=== PATIENT | male | born 1960 | race African-American/Black ===

== ENCOUNTER 2016-10-31 09:51 | Day surgery (SDC) | payer MEDICARE, OTHER ==
[~2016-10-31 09:51] MED LIST: DIPHENHYDRAMINE HCL 50 MG/ML VIAL ONE; EPINEPHRINE INJ 1 MG/10 ML DISP.SYRIN ONE; FLUMAZENIL INJ 0.5 MG/5 ML VIAL IV ONE; GLUCAGON,HUMAN RECOMB 1 MG INJ ONE; MIDAZOLAM 2 MG/2 ML INJ ONE; NALOXONE HCL INJ/PF 0.4 MG/1 ML SDV ONE; ONDANSETRON HCL INJ/PF 4 MG/2 ML SDV ONE; PROMETHAZINE HCL INJ 25 MG/1 ML VIAL ONE
[2016-10-31] MEDS: FENTANYL CITRATE INJ/PF 100 MCG/2 ML AMPUL ONE ×3 (10:42→10:46)
--- NOTE | 2016-10-31 10:54 | Operative Report ---
Operative Report DATE OF SURGERY: 10/31/16 Operative Report: The risks benefits and alternatives of the procedure explained to the patient in detail and informed consent is obtained that GIF Olympus video scope was inserted into the patient's mouth and hypopharynx the esophagus is identified intubated and insufflated the scope was then advanced through the esophagus stomach and duodenum retroflexion maneuver is done the esophagus stomach and first and second portions of the duodenum examined PREOPERATIVE DIAGNOSIS: Epigastric pain POSTOPERATIVE DIAGNOSIS: Gastritis OPERATION: EGD with biopsy SURGEON: CHARLES MARSHALL ANESTHESIA: Moderate Sedation - 2 mg of Versed, 100 g of fentanyl. TISSUE REMOVED OR ALTERED: Gastric specimens obtained rule out Helicobacter pylori COMPLICATIONS: None. ESTIMATED BLOOD LOSS: none. INTRAOPERATIVE FINDINGS: Normal esophagus. Gastritis status post biopsy. First and second portions of the duodenum are normal. PROCEDURE: Patient tolerated the procedure well. No immediate postprocedure complications are noted. Patient is discharged in good condition. Discharge date 10/31/2016. Discharge diet: Regular. Discharge activity: Regular. Patient is instructed to go to emergency room to any further problems or questions. Patient does have a 2-3 week follow-up to discuss findings. We'll await on biopsies.
[2016-10-31 12:05] VITALS: BP 161/87
== END 2016-10-31 12:00 | disposition home or self-care (01) ==
LOC: END 09:51
PROVIDERS: ATTEND Internal Medicine Gastroenterology
PROC: 0DB68ZX Excision of Stomach, Via Natural or Artificial Opening Endoscopic, Diagnostic (ICD-10-PCS; principal; 2016-10-31 10:30)
DX: R10.13 Epigastric pain (principal); E78.1 Pure hyperglyceridemia; K85.80 Other acute pancreatitis without necrosis or infection; E11.9 Type 2 diabetes mellitus without complications; E78.00 Pure hypercholesterolemia, unspecified; Z79.899 Other long term (current) drug therapy; Z79.84 Long term (current) use of oral hypoglycemic drugs; Z79.4 Long term (current) use of insulin
CPT/HCPCS: 43239; 82962; 88305 ×2; J2250; J3010; J0171; J1200; J1610; J2310; J2405; J2550; J3490

== ENCOUNTER 2017-10-17 15:36 | Emergency (ER) | payer MEDICARE, OTHER ==
[2017-10-17] MEDS ORDERED: RINGERS SOLUTION,LACTATED 1,000 ML IV ONE (15:43)
[2017-10-17] MEDS ORDERED: ONDANSETRON HCL INJ/PF 4 MG/2 ML SDV IV ONE ×2 (15:44→19:23)
[2017-10-17] MEDS ORDERED: DIPHENHYDRAMINE HCL 50 MG/ML VIAL IV ONE (15:45)
[2017-10-17] MEDS ORDERED: MORPHINE SULFATE 10 MG/ML INJ IV ONE ×2 (15:45→18:56)
--- NOTE | 2017-10-17 15:48 | ER Document Report ---
ED Medical Screen (RME) - General Chief Complaint: Abdominal Pain Stated Complaint: ABDOMINAL PAIN Time Seen by Provider: 10/17/17 15:42 Notes: Patient is complaining of abdominal pain that started yesterday. 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 Appears to be in severe pain. No diarrhea. No fever. Patient has had his gallbladder removed but no other abdominal surgeries. Patient has a history of pituitary tumor. He is an insulin-dependent diabetic. Hypertension. Diffusely tender abdomen. Appears to be in significant pain. TRAVEL OUTSIDE OF THE [place]. IN LAST 30 DAYS: No - Related Data Allergies/Adverse Reactions: No Known Allergies Allergy (Verified 10/17/17 15:36) Past Medical History - Social History Chew tobacco use (# tins/day): No Frequency of alcohol use: None Drug Abuse: None - Past Medical History Cardiac Medical History: Reports: Hx Coronary Artery Disease, Hx Heart Attack - 2013, Hx Hypercholesterolemia, Hx Hypertension Pulmonary Medical History: Denies: Hx Asthma, Hx Bronchitis, Hx COPD, Hx Pneumonia Neurological Medical History: Denies: Hx Cerebrovascular Accident, Hx Seizures Endocrine Medical History: Reports: Hx Diabetes Mellitus Type 2 Renal/ Medical History: Denies: Hx Peritoneal Dialysis GI Medical History: Reports: Hx Gastroesophageal Reflux Disease Musculoskeltal Medical History: Reports Hx Arthritis - B/L KNEES B/L HANDS Past Surgical History: Reports: Hx Orthopedic Surgery - Immunizations Hx Diphtheria, Pertussis, Tetanus Vaccination: Yes Physical Exam - Vital signs Vitals: Temp Pulse Resp BP Pulse Ox 98.8 F 84 20 150/97 H 97 10/17/17 15:43 10/17/17 15:43 10/17/17 15:43 10/17/17 15:43 10/17/17 15:43 Course - Vital Signs Vital signs: Temp Pulse Resp BP Pulse Ox 98.8 F 84 20 150/97 H 97 10/17/17 15:43 10/17/17 15:43 10/17/17 15:43 10/17/17 15:43 10/17/17 15:43
[2017-10-17 16:22] LABS: HEMATOCRIT 45.3 % (37.9-51.0); MEAN CORPUSCULAR VOLUME 75 fl (80-97); RED BLOOD COUNT 6.04 10^6/uL (4.35-5.55); RED CELL DISTRIBUTION WIDTH 13.6 % (11.5-14.0); WHITE BLOOD COUNT 15.5 10^3/uL (4.0-10.5)
[2017-10-17 16:48] LABS: HEMOGLOBIN 15.2 g/dL (13.5-17.0); HGB HCT DIFFERENCE 0.3
[2017-10-17 16:49] LABS: MEAN CORPUSCULAR HEMOGLOBIN 24.9 pg (27.0-33.4)
[2017-10-17 16:50] LABS: MEAN CORPUSCULAR HGB CONC 33.5 g/dL (32.0-36.0)
[2017-10-17 16:52] LABS: BASOPHILS % (MANUAL) 0 % (0-2); EOSINOPHILS % (MANUAL) 0 % (0-6); LYMPHOCYTES % (MANUAL) 17 % (13-45); TOTAL CELLS COUNTED 100
[2017-10-17 16:54] LABS: HYPOCHROMASIA SLIGHT
--- NOTE | 2017-10-17 18:06 | ER Document Report ---
ED GI/ - General Mode of Arrival: Ambulatory Information source: Patient TRAVEL OUTSIDE OF THE [place] IN LAST 30 DAYS: No <SELAM ADKINS - Last Filed: 10/17/17 18:05> <DOMINIQUE BARTH - Last Filed: 10/18/17 03:49> - General Chief Complaint: Abdominal Pain Stated Complaint: ABDOMINAL PAIN Time Seen by Provider: 10/17/17 15:42 Notes: Patient is a 56-year-old male who presents to the ER today for pancreatitis. Patient has a history of pancreatitis due to high triglycerides multiple times in the past. Patient states that this pain started yesterday while he was in [place] [employer]. He states that it is all in the left upper quadrant of the abdomen and has had nausea and multiple episodes of vomiting. He denies any diarrhea. He states that they took his gallbladder out during 1 of the pancreatitis episodes. He does not drink any alcohol. He is on cholesterol medication. (SELAM ADKINS) - Related Data Allergies/Adverse Reactions: No Known Allergies Allergy (Verified 10/17/17 15:36) Past Medical History - General Information source: Patient - Social History Smoking Status: Never Smoker Chew tobacco use (# tins/day): No Frequency of alcohol use: None Drug Abuse: None Family History: Hypertension Patient has suicidal ideation: No Patient has homicidal ideation: No - Past Medical History Cardiac Medical History: Reports: Hx Coronary Artery Disease, Hx Heart Attack - 2012, Hx Hypercholesterolemia, Hx Hypertension Pulmonary Medical History: Denies: Hx Asthma, Hx Bronchitis, Hx COPD, Hx Pneumonia Neurological Medical History: Denies: Hx Cerebrovascular Accident, Hx Seizures Endocrine Medical History: Reports: Hx Diabetes Mellitus Type 2 Renal/ Medical History: Denies: Hx Peritoneal Dialysis GI Medical History: Reports: Hx Gastroesophageal Reflux Disease Musculoskeltal Medical History: Reports Hx Arthritis - B/L KNEES B/L HANDS Past Surgical History: Reports: Hx Orthopedic Surgery - Immunizations Hx Diphtheria, Pertussis, Tetanus Vaccination: Yes <SELAM ADKINS - Last Filed: 10/17/17 18:05> Review of Systems - Review of Systems Constitutional: No symptoms reported EENT: No symptoms reported Cardiovascular: No symptoms reported Respiratory: No symptoms reported Gastrointestinal: See HPI Genitourinary: No symptoms reported Male Genitourinary: No symptoms reported Musculoskeletal: No symptoms reported Skin: No symptoms reported Hematologic/Lymphatic: No symptoms reported Neurological/Psychological: No symptoms reported <SELAM ADKINS - Last Filed: 10/17/17 18:05> Physical Exam <SELAM ADKINS - Last Filed: 10/17/17 18:05> <DOMINIQUE BARTH - Last Filed: 10/18/17 03:49> - Vital signs Vitals: Temp Pulse Resp BP Pulse Ox 98.8 F 84 20 150/97 H 97 10/17/17 15:43 10/17/17 15:43 10/17/17 15:43 10/17/17 15:43 10/17/17 15:43 - Notes Notes: PHYSICAL EXAMINATION: GENERAL: Uncomfortable appearing, but in no acute distress. HEAD: Atraumatic, normocephalic. EYES: Pupils equal round and reactive to light, extraocular movements intact, sclera anicteric, conjunctiva are normal. NECK: Normal range of motion, supple without lymphadenopathy LUNGS: CTAB and equal. No wheezes rales or rhonchi. HEART: Regular rate and rhythm without murmurs ABDOMEN: Soft, moderate left upper quadrant tenderness. No guarding, no rebound BACK: no vertebral tenderness, normal ROM GI/: no CVA tenderness EXTREMITIES: Normal range of motion, no pitting edema. No cyanosis. NEUROLOGICAL: Cranial nerves grossly intact. Normal sensory/motor exams. PSYCH: Normal mood, normal affect. SKIN: Warm, Dry, normal turgor, no rashes or lesions noted (SELAM ADKINS) Course - Laboratory Result Diagrams: 10/17/17 16:00 10/17/17 16:00 <SELAM ADKINS - Last Filed: 10/17/17 18:05> - Laboratory Result Diagrams: 10/17/17 16:00 10/17/17 19:40 <LANDRYBECKYDOMINIQUE - Last Filed: 10/18/17 03:49> - Re-evaluation Re-evalutation: Patient vomited twice now since I began taking care of him. He is much more comfortable now that he has had Dilaudid. Continuing to give IV fluids, has already received Zosyn. Leukocytosis at 15.5, elevated neutrophils, no bandemia , no fever, tachycardia, or hypotension. LDH is elevated at greater than 3000, lipase is elevated at greater than 17,000. Indirect and direct bilirubin greater than 2. Triglycerides are unmeasurable because of severe elevation. Patient is a very tender upper abdomen. CAT scan will be performed to rule out abscess or other concerning process. CAT scan showing abnormal appearing head which could be necrotizing pancreatitis , developing abscess, or mass. We do not have gastroenterology, limited ability to perform drainage on abscess with interventional radiology, and no ability to perform dialysis in case this is needed for patient's severely elevated triglycerides. Discussed with Dr. Isabel, recommends patient be transferred for these reasons to tertiary care center. Patient requests to go to [place]. 10/17/17 22:45 Called [facility] transfer center, pending call back. 10/17/17 23:[address] Allen, internal medicine, patient will be accepted for transfer. 10/18/17 00:30 We do have an assigned room number. Transport was about 2 hours away. Patient back in pain, requesting more pain medication, heart rate in the 90s, pulse oxygenation 95% on room air. 10/18/17 02:00 Transport team is almost here, patient comfortable, vital signs unchanged, no current complaints. Stable for transport. (DOMINIQUE BARTH) - Vital Signs Vital signs: Temp Pulse Resp BP Pulse Ox 99.2 F 84 19 147/93 H 93 10/18/17 01:56 10/17/17 15:43 10/18/17 02:19 10/18/17 02:19 10/18/17 02:19 - Laboratory Laboratory results interpreted by me: 10/17/17 10/17/17 10/17/17 16:00 19:40 20:00 WBC 15.5 H RBC 6.04 H MCV 75 L MCH 24.9 L Seg Neuts % (Manual) 81 H Monocytes % (Manual) 2 L Abs Neuts (Manual) 12.6 H Sodium 136.8 L Potassium 5.1 H Carbon Dioxide 21 L Glucose 181 H Total Bilirubin 2.8 H Direct Bilirubin 2.5 H AST 79 H ALT < 6 L Lactate Dehydrogenase 3175 H Total Protein 9.0 H Triglycerides > 525 H Cholesterol 272.12 H HDL Cholesterol 22 L Lipase 03044.9 H Urine Protein >=500 H Urine Glucose (UA) 50 H Urine Ketones TRACE H Discharge <SELAM ADKINS - Last Filed: 10/17/17 18:05> <DOMINIQUE BARTH - Last Filed: 10/18/17 03:49> - Discharge Disposition: [facility] Referrals: NICK GUERRERO NP [Primary Care Provider] - Follow up as needed
[2017-10-17] MEDS ORDERED: PIPERACILLIN/TAZOBACTAM 3.375 GM VIAL IV ONE (18:29)
[2017-10-17] MEDS ORDERED: NORMAL SALINE 1000 ML 1,000 ML IV ONE (18:29)
[2017-10-17 20:05] LABS: ALANINE AMINOTRANSFERASE < 6 U/L (21-72); ALBUMIN 4.6 g/dL (3.5-5.0); ALKALINE PHOSPHATASE 43 U/L (38-126); ANION GAP 15 (5-19); BLOOD UREA NITROGEN 14 mg/dL (7-20); CALCIUM 8.6 mg/dL (8.4-10.2); CARBON DIOXIDE 21 mmol/L (22-30); CHLORIDE 101 mmol/L (98-107); CREATININE RESULT 0.77 mg/dL (0.52-1.25); Direct HDL 22 mg/dL (>40); SODIUM 136.8 mmol/L (137-145)
[2017-10-17 20:26] LABS: APPEARANCE,URINE CLEAR; BILIRUBIN,URINE NEGATIVE (NEGATIVE); GLUCOSE, URINE 50 mg/dL (NEGATIVE); KETONES,URINE TRACE mg/dL (NEGATIVE); LEUKOCYTE ESTERASE,URINE NEGATIVE (NEGATIVE); NITRITE,URINE NEGATIVE (NEGATIVE); PROTEIN,URINE >=500 mg/dL (NEGATIVE); UROBILINOGEN,URINE NEGATIVE mg/dL (<2.0)
[2017-10-17 20:38] LABS: ALCOHOL < 10 mg/dL (NONE DETECTED); BILIRUBIN,TOTAL 2.8 mg/dL (0.2-1.3); DIRECT LDL < 30 mg/dL (<100)
[2017-10-17 20:39] LABS: ASPARTATE AMINO TRANSFERASE 79 U/L (17-59); BILIRUBIN,DIRECT 2.5 mg/dL (0.0-0.4); CHOLESTEROL 272.12 mg/dL (0-200)
[2017-10-17 20:40] LABS: GLUCOSE 181 mg/dL (75-110); POTASSIUM 5.1 mmol/L (3.6-5.0)
[2017-10-17 20:59] LABS: LDH 3175 U/L (313-618); LIPASE 17104.9 U/L (23-300)
[2017-10-17] MEDS ORDERED: HYDROMORPHONE HCL INJ/PF 2 MG/ML AMPULE IV ONE (21:20)
[2017-10-17 21:22] LABS: TRIGLYCERIDES > 525 mg/dL (<150)
[2017-10-17 21:26] LABS: VLDL CHOLESTEROL < 600.0 mg/dL (10-31)
--- NOTE | 2017-10-17 22:19 | RADIOLOGY REPORT (SQ) ---
EXAM DESCRIPTION: CT ABD/PELVIS WITH IV ONLY COMPLETED DATE/TIME: 10/17/2017 10:06 pm REASON FOR STUDY: abd pain, vomiting, ? abscess of pancreas COMPARISON: 10/20/2016 TECHNIQUE: CT scan of the abdomen and pelvis performed using helical scanning technique with dynamic intravenous contrast injection. No oral contrast. Images reviewed with lung, soft tissue, and bone windows. Reconstructed coronal and sagittal MPR images reviewed. Delayed images for evaluation of the urinary system also acquired. All images stored on PACS. All CT scanners at this facility use dose modulation, iterative reconstruction, and/or weight based d osing when appropriate to reduce radiation dose to as low as reasonably achievable (ALARA). [facility]: Dose Right [facility]: CareDose [facility]: Dose Right [facility]: Teradose 4D [facility]: [facility] CONTRAST TYPE AND DOSE: contrast/concentration: Isovue 370.00 mg/ml; Total Contrast Delivered: 100.0 ml; Total Saline Delivered: 72.0 ml RENAL FUNCTION: BUN 14 creatinine 0.8 RADIATION DOSE: CT Rad equipment meets quality standard of care and radiation dose reduction techniq ues were employed. CTDIvol: 20.8 - 21.1 mGy. DLP: 2400 mGy-cm.. LIMITATIONS: None. FINDINGS: LOWER CHEST: No significant findings. No nodules or infiltrates. LIVER: Normal size. No masses. No dilated ducts. SPLEEN: Normal size. No focal lesions. PANCREAS: Inflammation surrounding enlarged pancreatic head. There is approximately 1 cm focus of lo w attenuation in the posterior pancreatic head. No evidence of pseudoaneurysm. GALLBLADDER: Surgically absent. ADRENAL GLANDS: No significant masses or asymmetry. RIGHT KIDNEY AND URETER: No solid masses. No significant calcifications. No hydronephrosis or hyd roureter. LEFT KIDNEY AND URETER: No solid masses. No significant calcifications. No hydronephrosis or hydr oureter. AORTA AND VESSELS: No aneurysm. No dissection. Renal arteries, SMA, celiac without stenosis. RETROPERITONEUM: No retroperitoneal adenopathy, hemorrhage or masses. BOWEL AND PERITONEAL CAVITY: No masses or inflammatory changes. No free fluid or peritoneal masses. APPENDIX: Normal. PELVIS: No mass. No free fluid. Normal bladder. ABDOMINAL WALL: No masses. No hernias. BONES: No significant or acute findings. OTHER: No other significant finding. IMPRESSION: Acute pancreatitis. Low-attenuation in the head could represent necrosis/ developing ab scess or underlying mass. TECHNICAL DOCUMENTATION: JOB ID: [id number] Quality ID # [id number]: Final reports with documentation of one or more dose reduction techniques (e.g., Au tomated exposure control, adjustment of the mA and/or kV according to patient size, use of iterative reconstruction technique) 2010 [employer]- All Rights Reserved
[2017-10-17] MEDS ORDERED: NORMAL SALINE 1000 ML 1,000 ML IV PRN (22:55)
[2017-10-17] MEDS ORDERED: PIPERACILLIN/TAZOBACTAM 4.5 GM VIAL IV SCH (23:00)
[2017-10-18] MEDS ORDERED: HYDROMORPHONE HCL 2 MG TABLET PO ONE (00:35)
[2017-10-18] MEDS ORDERED: HYDROMORPHONE HCL INJ/PF 2 MG/ML AMPULE ONE (00:50)
[2017-10-18] MEDS ORDERED: HYDROMORPHONE HCL INJ/PF 2 MG/ML AMPULE IV ONE (00:58)
[2017-10-18 02:04] VITALS: BP 147/93
== END 2017-10-18 02:20 | disposition short-term general hospital (02) ==
LOC: ER 15:36
DX: R10.9 Unspecified abdominal pain (principal); R10.12 Left upper quadrant pain; R11.2 Nausea with vomiting, unspecified
CPT/HCPCS: 96376; 99285; 96361; 96375; 96365; 96367; 36415; 80307; 83615; 83690; 85025; 80053; 81001; 80061; 74177; J1200; J2270; J1170 ×2; J2405; J7030 ×2; J7120; J2543

== ENCOUNTER 2018-11-05 00:57 | Emergency (ER) | payer MEDICARE, OTHER ==
--- NOTE | 2018-11-05 01:48 | ER Document Report ---
HPI - HPI Patient complains to provider of: left hand pain Time Seen by Provider: 11/05/18 01:17 Pain Level: 4 Context: Patient is a 57-year-old male that comes to the emergency apartment for chief complaint of left hand/wrist pain. He states there was a circular swelling area over the area but this seems to have resolved, however the hand is still swollen and painful, especially with movement of the fingers or movement of the wrist. He denies fever chills, injury, history of the same. Symptoms been present for almost 5 days. He was seen by primary care, had an x-ray performed, did not hear the results of the x-ray, symptoms have not resolved. He is taking tramadol by prescription after being seen. Denies orthopedic surgery on the same side, hx septic joints, history of IV drug abuse. Past Medical History - General Information source: Patient - Social History Smoking Status: Never Smoker Frequency of alcohol use: None Drug Abuse: None Lives with: Family Family History: Hypertension - Past Medical History Cardiac Medical History: Reports: Hx Coronary Artery Disease, Hx Heart Attack - 2012, Hx Hypercholesterolemia, Hx Hypertension Pulmonary Medical History: Denies: Hx Asthma, Hx Bronchitis, Hx COPD, Hx Pneumonia Neurological Medical History: Denies: Hx Cerebrovascular Accident, Hx Seizures Endocrine Medical History: Reports: Hx Diabetes Mellitus Type 2 Renal/ Medical History: Denies: Hx Peritoneal Dialysis GI Medical History: Reports: Hx Gastroesophageal Reflux Disease Musculoskeletal Medical History: Reports Hx Arthritis - B/L KNEES B/L HANDS Past Surgical History: Reports: Hx Orthopedic Surgery - Immunizations Hx Diphtheria, Pertussis, Tetanus Vaccination: Yes Vertical Provider Document - CONSTITUTIONAL General Appearance: WD/WN, No Apparent Distress - INFECTION CONTROL TRAVEL OUTSIDE OF THE [place] IN LAST 30 DAYS: No - HEENT HEENT: Atraumatic, Normocephalic - NECK Neck: Normal Inspection - RESPIRATORY Respiratory: Breath Sounds Normal, No Respiratory Distress - CARDIOVASCULAR Cardiovascular: Regular Rate, Regular Rhythm - GI/ABDOMEN Gastrointestinal: Abdomen Soft, Abdomen Non-Tender - BACK Back: Normal Inspection - MUSCULOSKELETAL/EXTREMETIES Musculoskeletal/Extremeties: Tender - Tender over the dorsal aspect of the right hand at the base of the third MCP, there is soft tissue swelling surrounding this. No snuffbox tenderness. Normal range of motion of the wrist, normal range of motion of the fingers although this is somewhat painful. Normal distal neurovascular exam. No erythema or abnormal heat to the area. Normal hand, wrist, arm, shoulder exam otherwise. Course - Re-evaluation Re-evalutation: Patient with soft tissue swelling, point tenderness over the left hand over the dorsal aspect, however there is no abnormal heat, erythema, wound, or signs of infection. Range of motion of the wrist and fingers completely intact although patient has pain with doing so. Normal distal neurovascular exam. X-ray showing bony development over the same place for patient has pain, either old injury or spurring. Patient placed in a wrist immobilization, because of his significant cardiovascular history including CAD, diabetes, hypertension we will avoid anti-inflammatories at this time. Discussed management, orthopedic follow-up, return precautions. Patient states understanding and agreement. - Vital Signs Vital signs: Temp Pulse Resp BP Pulse Ox 98.0 F 71 16 144/90 H 96 11/05/18 01:01 11/05/18 01:01 11/05/18 01:01 11/05/18 01:01 11/05/18 01:01 - Diagnostic Test Radiology reviewed: Image reviewed, Reports reviewed Procedures - Immobilization left wrist Pre-Proc Neuro Vasc Exam: Normal Immobilizer type: Cock-up Performed by: PCT Post-Proc Neuro Vasc Exam: Normal Alignment checked and good: Yes Discharge - Discharge Clinical Impression: Left hand pain Condition: Stable Disposition: HOME, SELF-CARE Additional Instructions: There is a bony abnormality or spur in your hand that is most likely causing secondary inflammation and swelling. Wear the splint, ice the area 3-4 times a day, take Tylenol or your tramadol for pain. Take provided medication tonight at night only if needed for sleep, do not mix with alcohol or some other sedating medication. Do not drive while taking. Follow-up with the orthopedic referral for additional evaluation and management. Return if you worsen including severe swelling, developing redness, fever, numbness, or any other concerning or worsening symptoms. Referrals: KASSI LEDESMA DO [ACTIVE STAFF] - Follow up as needed
--- NOTE | 2018-11-05 02:22 | RADIOLOGY REPORT (SQ) ---
EXAM DESCRIPTION: XR HAND 3 OR MORE VIEWS COMPLETED DATE/TME: 11/05/2018 01:37 CLINICAL HISTORY: 57 years, Male, hand and wrist swelling/pain COMPARISON: None. NUMBER OF VIEWS: 3 TECHNIQUE: 3 view left hand LIMITATIONS: None. FINDINGS: Dorsal soft tissue swelling of the hand. Well-corticated ossific density seen on the lateral view only along the dorsal aspect of the hand which could reflect bony spur or sequelae of old trauma. No evidence for acute fracture or dislocation. Joint spaces are preserved IMPRESSION: Dorsal soft tissue swelling. Well-corticated ossific density along the dorsal aspect of the hand, seen on the lateral view. This could reflect bony spur or sequelae of old trauma copyright 2010 [employer]- All Rights Reserved
--- NOTE | 2018-11-05 02:23 | RADIOLOGY REPORT (SQ) ---
EXAM DESCRIPTION: XR WRIST 3 OR MORE VIEWS COMPLETED DATE/TME: 11/05/2018 01:37 CLINICAL HISTORY: 57 years, Male, hand and wrist swelling/pain COMPARISON: None. NUMBER OF VIEWS: 3 TECHNIQUE: 3 view left wrist LIMITATIONS: None. FINDINGS: Negative for acute fracture or dislocation. Dorsal soft tissue swelling of the hand with well-corticated ossific density, please refer to dedicated hand x-ray. Soft tissues of the wrist are preserved. IMPRESSION: Unremarkable left wrist copyright 2010 [employer]- All Rights Reserved
[2018-11-05] MEDS ORDERED: HYDROCODONE/ACETAMINOPHEN 5-325 MG (6 TAB/ER DISP) PO PRN (02:38)
[2018-11-05 02:53] VITALS: BP 123/94
== END 2018-11-05 02:53 | disposition home or self-care (01) ==
LOC: ER 00:57
DX: M79.642 Pain in left hand (principal); I25.10 Atherosclerotic heart disease of native coronary artery without angina pectoris; E78.00 Pure hypercholesterolemia, unspecified; I10 Essential (primary) hypertension; E11.9 Type 2 diabetes mellitus without complications; I25.2 Old myocardial infarction
CPT/HCPCS: 99283; 73130; 73110; L3908; A9270

== ENCOUNTER 2019-03-08 08:09 | Emergency (ER) | payer MEDICARE, OTHER ==
[2019-03-08] MEDS ORDERED: ACETAMINOPHEN 325 MG TABLET PO ONE (09:39)
[2019-03-08] MEDS ORDERED: KETOROLAC TROMETHAMINE 60 MG/2 ML SDV IM ONE (09:39)
[2019-03-08] MEDS ORDERED: DEXAMETHASONE SOD PHOS INJ 10 MG/1 ML VIAL IM ONE (09:39)
--- NOTE | 2019-03-08 09:41 | ER Document Report ---
HPI - HPI Time Seen by Provider: 03/08/19 09:13 Pain Level: 5 Context: Patient is a 58-year-old male who presents the emergency department with a chief complaint of lower back pain. He describes his pain as a pain that shoots down his left leg. He has had this problem over a month ago. He denies any dysuria, hematuria, IV drug abuse, history of cancer, bladder or bowel dysfunction, or any other symptoms at this time. He has been taking ibuprofen, Goody's powder, and Aleve to help with his symptoms, but has had little relief. He has an appointment with his primary care provider on the of this month. He denies any fever. - CONSTITUTIONAL Constitutional: DENIES: Fever, Chills - EENT EENT: DENIES: Sore Throat, Ear Pain - NEURO Neurology: DENIES: Headache - CARDIOVASCULAR Cardiovascular: DENIES: Chest pain - RESPIRATORY Respiratory: DENIES: Trouble Breathing, Coughing - GASTROINTESTINAL Gastrointestinal: DENIES: Abdominal Pain - MUSCULOSKELETAL Musculoskeletal: REPORTS: Extremity pain - Left buttock, Back Pain - Bilateral. DENIES: Neck Pain, Swelling - DERM Skin Color: Normal Skin Problems: None Past Medical History - General Information source: Patient - Social History Smoking Status: Unknown if Ever Smoked Family History: Hypertension - Past Medical History Cardiac Medical History: Reports: Hx Coronary Artery Disease, Hx Heart Attack - 2013, Hx Hypercholesterolemia, Hx Hypertension Pulmonary Medical History: Denies: Hx Asthma, Hx Bronchitis, Hx COPD, Hx Pneumonia Neurological Medical History: Denies: Hx Cerebrovascular Accident, Hx Seizures Endocrine Medical History: Reports: Hx Diabetes Mellitus Type 2 Renal/ Medical History: Denies: Hx Peritoneal Dialysis GI Medical History: Reports: Hx Gastroesophageal Reflux Disease Musculoskeletal Medical History: Reports Hx Arthritis - B/L KNEES B/L HANDS Past Surgical History: Reports: Hx Cholecystectomy, Hx Orthopedic Surgery - Immunizations Hx Diphtheria, Pertussis, Tetanus Vaccination: Yes Vertical Provider Document - CONSTITUTIONAL Agree With Documented VS: Yes Exam Limitations: No Limitations General Appearance: No Apparent Distress - INFECTION CONTROL TRAVEL OUTSIDE OF THE [place].S. IN LAST 30 DAYS: No - HEENT HEENT: Atraumatic, Normocephalic, PERRLA - NECK Neck: Normal Inspection, Supple - RESPIRATORY Respiratory: Breath Sounds Normal, No Respiratory Distress - CARDIOVASCULAR Cardiovascular: Regular Rate, Regular Rhythm Pulses: Normal: Radial - MUSCULOSKELETAL/EXTREMETIES Musculoskeletal/Extremeties: FROM, Tender - Low back, left buttock - NEURO Level of Consciousness: Awake, Alert, Appropriate Motor/Sensory: No Motor Deficit, No Sensory Deficit Deep Tendon Reflexes: 2+ - DERM Integumentary: Warm, Dry Course - Re-evaluation Re-evalutation: 03/08/19 09:41 Differential diagnosis for back pain includes muscle spasm, muscle strain, slipped disc cauda equina syndrome, vertebral fracture, vertebral tumor, epidural abscess, pyelonephritis, or AAA. Based on history and exam, the most likely etiology of the patient's back pain is sciatic nerve pain on the left side. Emergent MRI is not indicated at this time because the patient does not have new weakness, or cauda equina syndrome. Patient does not have bladder or bowel dysfunction. Patient does not have history of IV drug use, therefore, I do not suspect an epidural abscess. Patient does not have recent weight loss or night sweats, and does not have a known history of cancer. He will receive Toradol, Decadron, and Tylenol here in the emergency department. I will also send him home with Toradol to go home with. He is in agreement with this plan. He will follow-up with his primary care provider. Verbal discharge instructions were given to the patient. They verbalized understanding. They are stable for discharge. - Vital Signs Vital signs: Temp Pulse Resp BP Pulse Ox 98.0 F 79 17 141/86 H 98 03/08/19 08:30 03/08/19 08:30 03/08/19 08:30 03/08/19 08:30 03/08/19 08:30 Discharge - Discharge Clinical Impression: Sciatica Qualifiers: Laterality: left Qualified Code(s): M54.32 - Sciatica, left side Condition: Stable Disposition: HOME, SELF-CARE Instructions: Low Back Pain ([facility]), Warm Packs ([facility]) Additional Instructions: You were seen today in the emergency department for back pain. Your back pain is most consistent with sciatic nerve pain. You may take Toradol and acetaminophen 1000 mg every 6 hours as needed for the pain. You may also buy [id number] Aspercreme with lidocaine and apply to the area per box instructions. If you develop a fever greater than 100.4 F, lose bowel or bladder function, are unable to walk, or have any symptoms that are worrisome to you, please return to the emergency department.. Prescriptions: Acetaminophen [Acetaminophen Extra Strength] 1,000 mg PO Q6HP PRN #90 tablet PRN Reason: Ketorolac Tromethamine [Toradol 10 mg Tablet] 10 mg PO Q6HP PRN #20 tablet PRN Reason: Referrals: NICK GUERRERO, VICE PRESIDENT OF COMPLIANCE [Primary Care Provider] - Follow up as needed
[2019-03-08 10:26] VITALS: BP 144/98
== END 2019-03-08 10:30 | disposition home or self-care (01) ==
LOC: ER 08:09
DX: M54.32 Sciatica, left side (principal); M54.5 Low back pain; I25.10 Atherosclerotic heart disease of native coronary artery without angina pectoris; E78.00 Pure hypercholesterolemia, unspecified; I10 Essential (primary) hypertension; E11.9 Type 2 diabetes mellitus without complications; I25.2 Old myocardial infarction; Z90.49 Acquired absence of other specified parts of digestive tract
CPT/HCPCS: 99283; 96372; A9270; J1885; J1100

== ENCOUNTER 2019-03-13 17:27 | Emergency (ER) | payer MEDICARE, OTHER ==
[2019-03-13 17:35] VITALS: BP 151/97
[2019-03-13] MEDS ORDERED: FENTANYL CITRATE INJ/PF 100 MCG/2 ML AMPUL IV ONE (19:02)
--- NOTE | 2019-03-13 19:04 | ER Document Report ---
ED Medical Screen (RME) - General Chief Complaint: Abdominal Pain Stated Complaint: BACK PAIN Time Seen by Provider: 03/13/19 18:46 Primary Care Provider: NICK GUERRERO NP [Primary Care Provider] - Follow up as needed Mode of Arrival: Ambulatory Information source: Patient Notes: Patient presents complaining of lower back pain for the past month that worsened today. Patient states that he started having abdominal pain as well and is uncertain if his pancreatitis may be flaring up. Patient denies any fever nausea or vomiting at this time. Patient denies any urinary symptoms at this time. I have greeted and performed a rapid initial assessment of this patient. A comprehensive ED assessment and evaluation of the patient, analysis of test results and completion of the medical decision making process will be conducted by additional ED providers. TRAVEL OUTSIDE OF THE [place] IN LAST 30 DAYS: No - Related Data Allergies/Adverse Reactions: No Known Allergies Allergy (Verified 03/13/19 17:29) Past Medical History - Past Medical History Cardiac Medical History: Reports: Hx Coronary Artery Disease, Hx Heart Attack - 2012, Hx Hypercholesterolemia, Hx Hypertension Pulmonary Medical History: Denies: Hx Asthma, Hx Bronchitis, Hx COPD, Hx Pneumonia Neurological Medical History: Denies: Hx Cerebrovascular Accident, Hx Seizures Endocrine Medical History: Reports: Hx Diabetes Mellitus Type 2 Renal/ Medical History: Denies: Hx Peritoneal Dialysis GI Medical History: Reports: Hx Gastroesophageal Reflux Disease Musculoskeltal Medical History: Reports Hx Arthritis - B/L KNEES B/L HANDS Past Surgical History: Reports: Hx Cholecystectomy, Hx Orthopedic Surgery - Immunizations Hx Diphtheria, Pertussis, Tetanus Vaccination: Yes Physical Exam - Vital signs Vitals: Temp Pulse Resp BP Pulse Ox 98.2 F 98 20 151/97 H 96 03/13/19 17:33 03/13/19 17:33 03/13/19 17:33 03/13/19 17:33 03/13/19 17:33 - General General appearance: Alert In distress: Mild Notes: Left flank pain, thoracolumbar midline tenderness, generalized abdominal tenderness Course - Vital Signs Vital signs: Temp Pulse Resp BP Pulse Ox 98.2 F 98 20 151/97 H 96 03/13/19 17:33 03/13/19 17:33 03/13/19 17:33 03/13/19 17:33 03/13/19 17:33 Doctor's Discharge - Discharge Referrals: NICK GUERRERO, [employer] [Primary Care Provider] - Follow up as needed
[2019-03-13 19:39] LABS: APPEARANCE,URINE CLEAR; BILIRUBIN,URINE NEGATIVE (NEGATIVE); COLOR,URINE YELLOW; GLUCOSE, URINE >=500 mg/dL (NEGATIVE); KETONES,URINE TRACE mg/dL (NEGATIVE); LEUKOCYTE ESTERASE,URINE NEGATIVE (NEGATIVE); NITRITE,URINE NEGATIVE (NEGATIVE); PROTEIN,URINE 100 mg/dL (NEGATIVE); URINE SPECIFIC GRAVITY 1.032; UROBILINOGEN,URINE NEGATIVE mg/dL (<2.0)
[2019-03-13 20:02] LABS: ABSOLUTE BASOPHILS # (AUTO) 0.1 10^3/uL (0.0-0.2); ABSOLUTE EOSINOPHILS # (AUTO) 0.2 10^3/uL (0.0-0.6); ABSOLUTE LYMPHOCYTES (AUTO) 4.2 10^3/uL (0.5-4.7); ABSOLUTE MONOCYTES (AUTO) 0.7 10^3/uL (0.1-1.4); ABSOLUTE NEUT (AUTO) 4.7 10^3/uL (1.7-8.2); BASOPHILS % (AUTO) 1.1 % (0-2); EOSINOPHILS % (AUTO) 1.5 % (0-6); HEMATOCRIT 40.8 % (37.9-51.0); LYMPHOCYTES % (AUTO) 42.4 % (13-45); MEAN CORPUSCULAR VOLUME 75 fl (80-97); MONOCYTES % (AUTO) 7.2 % (3-13); PLATELET COUNT 406 10^3/uL (150-450); RED BLOOD COUNT 5.42 10^6/uL (4.35-5.55); RED CELL DISTRIBUTION WIDTH 13.3 % (11.5-14.0); SEGMENTED NEUTROPHILS % (AUTO) 47.8 % (42-78); TOTAL CELLS COUNTED % (AUTO) 100 %; WHITE BLOOD COUNT 9.8 10^3/uL (4.0-10.5)
[2019-03-13 20:12] LABS: ALANINE AMINOTRANSFERASE 47 U/L (21-72); ALBUMIN 4.2 g/dL (3.5-5.0); ALKALINE PHOSPHATASE 55 U/L (38-126); ANION GAP 14 (5-19); ASPARTATE AMINO TRANSFERASE 36 U/L (17-59); BILIRUBIN,DIRECT 0.4 mg/dL (0.0-0.4); BILIRUBIN,TOTAL 0.6 mg/dL (0.2-1.3); BLOOD UREA NITROGEN 25 mg/dL (7-20); CALCIUM 9.5 mg/dL (8.4-10.2); CARBON DIOXIDE 22 mmol/L (22-30); CHLORIDE 100 mmol/L (98-107); GLUCOSE 345 mg/dL (75-110); LIPASE 297.9 U/L (23-300); POTASSIUM 4.4 mmol/L (3.6-5.0); SODIUM 135.8 mmol/L (137-145); TOTAL PROTEIN 7.6 g/dL (6.3-8.2)
[2019-03-13 20:24] LABS: HEMOGLOBIN 13.7 g/dL (13.5-17.0); MEAN CORPUSCULAR HEMOGLOBIN 25.3 pg (27.0-33.4); MEAN CORPUSCULAR HGB CONC 33.6 g/dL (32.0-36.0)
[2019-03-13] MEDS ORDERED: MORPHINE SULFATE 10 MG/ML INJ IM ONE (20:56)
[2019-03-13] MEDS ORDERED: NORMAL SALINE 1000 ML 1,000 ML IV ONE (20:57)
--- NOTE | 2019-03-13 20:59 | ER Document Report ---
ED General - General Chief Complaint: Abdominal Pain Stated Complaint: BACK PAIN Time Seen by Provider: 03/13/19 18:46 Primary Care Provider: NICK GUERRERO NP [Primary Care Provider] - Follow up in 3-5 days Mode of Arrival: Ambulatory Notes: Patient is a 58-year-old male who presents emergency department with a chief complaint of back, flank, and abdominal pain. He states that he has been having his symptoms for the past week. He was seen in the emergency department 4 days ago and was treated with Toradol and Decadron and he had some relief relief, but today he feels like his symptoms got worse. He has a past medical history of hypertension and diabetes. He is currently on atenolol, aspirin, metformin, and Lantus. Denies any dysuria, penile discharge, fever, or any other symptoms. TRAVEL OUTSIDE OF THE [place] IN LAST 30 DAYS: No - Related Data Allergies/Adverse Reactions: No Known Allergies Allergy (Verified 03/13/19 17:29) Past Medical History - General Information source: Patient - Social History Smoking Status: Never Smoker Chew tobacco use (# tins/day): No Frequency of alcohol use: None Drug Abuse: None Family History: Hypertension Patient has suicidal ideation: No Patient has homicidal ideation: No - Past Medical History Cardiac Medical History: Reports: Hx Coronary Artery Disease, Hx Heart Attack - 2012, Hx Hypercholesterolemia, Hx Hypertension Pulmonary Medical History: Denies: Hx Asthma, Hx Bronchitis, Hx COPD, Hx Pneumonia Neurological Medical History: Denies: Hx Cerebrovascular Accident, Hx Seizures Endocrine Medical History: Reports: Hx Diabetes Mellitus Type 2 Renal/ Medical History: Denies: Hx Peritoneal Dialysis GI Medical History: Reports: Hx Gastroesophageal Reflux Disease Musculoskeletal Medical History: Reports Hx Arthritis - B/L KNEES B/L HANDS Past Surgical History: Reports: Hx Cholecystectomy, Hx Orthopedic Surgery - Immunizations Hx Diphtheria, Pertussis, Tetanus Vaccination: Yes Review of Systems - Review of Systems Notes: REVIEW OF SYSTEMS: CONSTITUTIONAL : Denies recent illness. Denies recent unintentional weight loss. Denies fever, chills, or sweats. EENT: Denies eye, ear, throat, or mouth pain, discharge, or symptoms. Denies nasal or sinus congestion. CARDIOVASCULAR: Denies chest pain. RESPIRATORY: Denies shortness of breath, cough, congestion, difficulty jessica athing, or wheezing. GASTROINTESTINAL: See HPI GENITOURINARY: Denies difficulty urinating, burning, blood in urine, urgency or frequency. MUSCULOSKELETAL: See HPI SKIN: Denies rash, itchiness, or lesions HEMATOLOGIC : Denies easy bruising or bleeding. LYMPHATIC: Denies swollen, painful, enlarged glands. NEUROLOGICAL: Denies no numbness or tingling denies weakness. Denies headache. Denies altered mental status. Denies alteration in speech. PSYCHIATRIC: Denies stress, anxiety, alteration in sleep patterns, or depression. All other systems reviewed and negative. Physical Exam - Vital signs Vitals: Temp Pulse Resp BP Pulse Ox 98.2 F 98 20 151/97 H 96 03/13/19 17:33 03/13/19 17:33 03/13/19 17:33 03/13/19 17:33 03/13/19 17:33 - Notes Notes: PHYSICAL EXAMINATION: GENERAL: Appears well, healthy, well-nourished, no acute distress. HEAD: Normocephalic, atraumatic. EYES: PERRL, conjunctiva normal, all extraocular movements intact, sclera nonicteric ENT: Moist mucous membranes. NECK: Supple, no noticeable swelling, redness, rash. Normal range of motion. LUNGS: Equal breath sounds bilaterally and clear to auscultation. No wheezes rales or rhonchi. CARDIOVASCULAR: S1-S2, regular rate, regular rhythm. Radial pulses 2+, normal. ABDOMEN: Normoactive bowel sounds. Soft, tender left to mid abdomen. CVA tenderness noted on the left side. EXTREMITIES: Normal strength and range of motion, no pitting or edema. No cyanosis. NEUROLOGICAL: Moves all extremities upon command. Strength 5/5 in all extremities. PSYCH: Normal mood, normal affect. SKIN: Warm, dry. No rash, lesions, ulcerations noted. Normal skin turgor. Course - Re-evaluation Re-evalutation: 03/13/19 22:35 Patient will be sent for CT of the abdomen and pelvis to rule out any renal calculi at this time. He does have CVA tenderness. He also does have blood on his urinalysis. CBC and chemistries are unremarkable. 03/13/19 22:[address] of the abdomen is negative for any acute findings at this time. I suspect that the patient's new abdominal pain is related to his back pain that he was seen for the other day. He states he feels better after receiving morphine. I will send him home with some Robaxin. He will also receive a dose of Decadron here in the emergency department. I have told him he needs to see physical therapy. He is in agreement with this plan. Verbal discharge instructions were given to the patient. They verbalized understanding. They are stable for discharge. - Vital Signs Vital signs: Temp Pulse Resp BP Pulse Ox 98.2 F 98 20 151/97 H 96 03/13/19 17:33 03/13/19 17:33 03/13/19 17:33 03/13/19 17:33 03/13/19 17:33 - Laboratory Result Diagrams: 03/13/19 19:01 03/13/19 19:01 Laboratory results interpreted by me: 03/13/19 03/13/19 03/13/19 17:36 19:01 19:01 MCV 75 L MCH 25.3 L Sodium 135.8 L BUN 25 H Glucose 345 H Urine Protein 100 H Urine Glucose (UA) >=500 H Urine Ketones TRACE H Urine Blood SMALL H Discharge - Discharge Clinical Impression: Abdominal pain Qualifiers: Abdominal location: left lower quadrant Qualified Code(s): R10.32 - Left lower quadrant pain Back pain Qualifiers: Back pain location: back pain in unspecified location Chronicity: acute Back pain laterality: left Qualified Code(s): M54.9 - Dorsalgia, unspecified Condition: Stable Disposition: HOME, SELF-CARE Additional Instructions: You are seen today in the emergency department for back pain, flank pain, and abdominal pain. Your CT is normal. You do not have any kidney stones at this time. Your back pain may be the cause of your flank pain and abdominal pain. Please follow-up with your primary care provider in regard to this visit. Asked to see physical therapy. Until that time, you can continue to use your TENS unit as needed. You can also use warm packs or ice as needed to help with any pain. Please see the back stretches below. As discussed, try to use a foam roller to help with your back pain. Using the foam roller may hurt initially, but after the pain will get better. You have also been prescribed Robaxin, a muscle relaxer to help with the pain. Use as directed and before you go to sleep. This medication may make you sleepy. Stretching Exercises for the Back The physician has recommended that you begin stretching exercises for your back. These are often used even while the back is painful. However, you should notify the physician if the activities seem to increase your pain. PELVIC TILT: Lie flat on your back with knees bent. Tighten your stomach and buttock muscles so it flattens your lower back against the floor. Hold 10 seconds. Repeat 10 times, twice daily. KNEE RAISE: Lying on the back with knees bent, raise one knee to your chest, then the other. Hold both knees against the chest 10 seconds, then lower one knee at a time. Repeat 10 times, twice daily. PARTIAL TRUNK RAISE: Lie face down, arms at your sides. Keeping your waist on the floor, use your arms raise your chest up. Support yourself on your elbows for 30 seconds. Repeat twice daily, increasing the time to two minutes as you recover. Prescriptions: Methocarbamol [Robaxin 500 mg Tablet] 1,000 mg PO QHS #120 tablet Referrals: NICK GUERRERO NP [Primary Care Provider] - Follow up in 3-5 days
--- NOTE | 2019-03-13 22:24 | RADIOLOGY REPORT (SQ) ---
CT ABDOMEN PELVIS WITH IV CONTRAST HISTORY: Abdominal pain. COMPARISON: 10/17/2017 TECHNIQUE: CT scan of the abdomen and pelvis was performed with IV contrast. This exam was performed according to our departmental dose-optimization program, which includes automated exposure control, adjustment of the mA and/or kV according to patient size and/or use of iterative reconstruction technique. FINDINGS: The lung bases are clear. No pleural or pericardial effusions. There is no hiatal hernia. Diffuse hepatic steatosis. There has been a prior cholecystectomy. The spleen, pancreas, and adrenal glands are normal. There are multiple bilateral simple renal cyst. No hydronephrosis. The prostate gland measures 5.7 cm. No small bowel obstruction. The appendix is normal. There is no evidence of diverticulitis. No intraperitoneal free fluid or free air is identified. The aorta is normal caliber. No acute osseous findings are appreciated. No pathologic body wall hernia is seen. IMPRESSION: No acute abdominal or pelvic pathology.
[2019-03-13] MEDS ORDERED: METHOCARBAMOL 500 MG TABLET PO ONE (22:32)
[2019-03-13] MEDS ORDERED: DEXAMETHASONE SOD PHOS INJ 10 MG/1 ML VIAL IM ONE (22:32)
== END 2019-03-13 23:36 | disposition home or self-care (01) ==
LOC: ER 17:27
DX: R10.32 Left lower quadrant pain (principal); R10.9 Unspecified abdominal pain; M54.9 Dorsalgia, unspecified; R31.9 Hematuria, unspecified; I25.10 Atherosclerotic heart disease of native coronary artery without angina pectoris; I25.2 Old myocardial infarction; I10 Essential (primary) hypertension; E11.9 Type 2 diabetes mellitus without complications; Z79.84 Long term (current) use of oral hypoglycemic drugs; Z79.4 Long term (current) use of insulin; Z79.899 Other long term (current) drug therapy; Z79.82 Long term (current) use of aspirin
CPT/HCPCS: 99284; 96372; 96361; 96374; 96375; 36415; 83690; 85025; 80053; 81001; 74177; J3010; A9270; J2270; J7030; J1100

== ENCOUNTER 2019-05-10 10:42 | Emergency (ER) | payer MEDICARE, OTHER ==
[2019-05-10] MEDS ORDERED: ONDANSETRON HCL INJ/PF 4 MG/2 ML SDV IV ONE (12:01)
[2019-05-10] MEDS ORDERED: MORPHINE SULFATE 10 MG/ML INJ IV ONE ×2 (12:01→15:02)
[2019-05-10] MEDS ORDERED: NORMAL SALINE 1000 ML 1,000 ML IV ONE (12:01)
[2019-05-10 13:06] LABS: ABSOLUTE BASOPHILS # (AUTO) 0.1 10^3/uL (0.0-0.2); ABSOLUTE EOSINOPHILS # (AUTO) 0.1 10^3/uL (0.0-0.6); ABSOLUTE LYMPHOCYTES (AUTO) 2.7 10^3/uL (0.5-4.7); ABSOLUTE MONOCYTES (AUTO) 0.5 10^3/uL (0.1-1.4); ABSOLUTE NEUT (AUTO) 4.2 10^3/uL (1.7-8.2); HEMATOCRIT 39.7 % (37.9-51.0); HEMOGLOBIN 13.9 g/dL (13.5-17.0); LYMPHOCYTES % (AUTO) 35.9 % (13-45); MEAN CORPUSCULAR HEMOGLOBIN 26.5 pg (27.0-33.4); MEAN CORPUSCULAR VOLUME 76 fl (80-97); MONOCYTES % (AUTO) 7.1 % (3-13); PLATELET COUNT 261 10^3/uL (150-450); RED BLOOD COUNT 5.26 10^6/uL (4.35-5.55); RED CELL DISTRIBUTION WIDTH 13.8 % (11.5-14.0); TOTAL CELLS COUNTED % (AUTO) 100 %; WHITE BLOOD COUNT 7.6 10^3/uL (4.0-10.5)
[2019-05-10 13:22] LABS: APPEARANCE,URINE CLEAR; BILIRUBIN,URINE NEGATIVE (NEGATIVE); COLOR,URINE YELLOW; GLUCOSE, URINE NEGATIVE (NEGATIVE); KETONES,URINE NEGATIVE (NEGATIVE); LEUKOCYTE ESTERASE,URINE NEGATIVE (NEGATIVE); NITRITE,URINE NEGATIVE (NEGATIVE); PROTEIN,URINE 100 mg/dL (NEGATIVE); UROBILINOGEN,URINE NEGATIVE mg/dL (<2.0)
[2019-05-10 13:26] LABS: ALANINE AMINOTRANSFERASE 47 U/L (21-72); ALBUMIN 4.2 g/dL (3.5-5.0); ALKALINE PHOSPHATASE 42 U/L (38-126); ANION GAP 12 (5-19); ASPARTATE AMINO TRANSFERASE 42 U/L (17-59); BILIRUBIN,DIRECT 0.3 mg/dL (0.0-0.4); BILIRUBIN,TOTAL 0.6 mg/dL (0.2-1.3); BLOOD UREA NITROGEN 16 mg/dL (7-20); CALCIUM 9.1 mg/dL (8.4-10.2); CARBON DIOXIDE 27 mmol/L (22-30); CHLORIDE 99 mmol/L (98-107); GLUCOSE 136 mg/dL (75-110); POTASSIUM 3.5 mmol/L (3.6-5.0); SODIUM 137.5 mmol/L (137-145); TOTAL PROTEIN 7.6 g/dL (6.3-8.2)
--- NOTE | 2019-05-10 16:08 | RADIOLOGY REPORT (SQ) ---
EXAM DESCRIPTION: CT ABD/PELVIS WITH IV ONLY COMPLETED DATE/TIME: 05/10/2019 3:51 pm REASON FOR STUDY: upper abd pain COMPARISON: 03/13/2019 TECHNIQUE: CT scan of the abdomen and pelvis performed using helical scanning technique with dynamic intravenous contrast injection. No oral contrast. Images reviewed with lung, soft tissue, and bone windows. Reconstructed coronal and sagittal MPR images reviewed. Delayed images for evaluation of the urinary system also acquired. All images stored on PACS. All CT scanners at this facility use dose modulation, iterative reconstruction, and/or weight based d osing when appropriate to reduce radiation dose to as low as reasonably achievable (ALARA). [facility]: Dose Right [facility]: CareDose [facility]: Dose Right [facility]: Teradose 4D [facility]: Footnote CONTRAST TYPE AND DOSE: contrast/concentration: Isovue 350.00 mg/ml; Total Contrast Delivered: 100.0 ml; Total Saline Delivered: 72.0 ml RENAL FUNCTION: Creatinine 0.77 RADIATION DOSE: CT Rad equipment meets quality standard of care and radiation dose reduction techniq ues were employed. CTDIvol: 20.1 - 21.1 mGy. DLP: 2456 mGy-cm.. LIMITATIONS: None. FINDINGS: LOWER CHEST: No significant findings. No nodules or infiltrates. LIVER: Hepatic steatosis. No focal lesions. No intrahepatic ductal dilation. SPLEEN: Normal size. No focal lesions. PANCREAS: No masses. No significant calcifications. No adjacent inflammation or peripancreatic fluid collections. Pancreatic duct not dilated. GALLBLADDER: Surgically absent. ADRENAL GLANDS: No significant masses or asymmetry. RIGHT KIDNEY AND URETER: No definite solid masses. Multiple subcentimeter hypodense cortical lesions , likely cysts but it difficult to characterize secondary to size. Exophytic subcentimeter hyperdens e lesion, likely hemorrhagic cyst. No significant calcifications. No hydronephrosis or hydrourete r. LEFT KIDNEY AND URETER: No definite solid masses. Multiple cysts with additional subcentimeter hypod ense lesions, likely cysts but difficult to characterize secondary to size. No significant calcific ations. No hydronephrosis or hydroureter. AORTA AND VESSELS: No aneurysm. No dissection. Renal arteries, SMA, celiac without stenosis. RETROPERITONEUM: No retroperitoneal adenopathy, hemorrhage or masses. BOWEL AND PERITONEAL CAVITY: Scattered colonic diverticula. No focal bowel wall thickening. No evid ence of intestinal obstruction. APPENDIX: Normal. PELVIS: Prostatomegaly measuring 5.5 cm transversely. Unremarkable urinary bladder. No lymphadenopa thy. ABDOMINAL WALL: No masses. No hernias. BONES: No acute bony abnormality. No discrete lytic or blastic osseous lesions. OTHER: No other significant finding. IMPRESSION: 1. No evidence of acute intra-abdominal/pelvic process. 2. Hepatic steatosis. 3. Prostatomegaly measuring 5.5 cm transversely. TECHNICAL DOCUMENTATION: JOB ID: [id number] Quality ID # [id number]: Final reports with documentation of one or more dose reduction techniques (e.g., Au tomated exposure control, adjustment of the mA and/or kV according to patient size, use of iterative reconstruction technique) 2010 [employer]- All Rights Reserved Reading location - IP/workstation name: [email or web address]
--- NOTE | 2019-05-10 16:19 | ER Document Report ---
ED GI/ - General Chief Complaint: Abdominal Pain Stated Complaint: ABDOMINAL PAIN Time Seen by Provider: 05/10/19 11:37 Primary Care Provider: NICK GUERRERO NP [Primary Care Provider] - Follow up as needed Mode of Arrival: Ambulatory Information source: Patient Notes: Patient is a 58-year-old male presented to the emergency department chief complaint of upper abdominal pain. Patient reports this is been going on for several days with worsening this morning. He states it feels like a burning pain in the pit of his stomach. He denies any nausea, vomiting or diarrhea. He has not had a fever. TRAVEL OUTSIDE OF THE [place] IN LAST 30 DAYS: No - Related Data Allergies/Adverse Reactions: No Known Allergies Allergy (Verified 05/10/19 10:42) Past Medical History - General Information source: Patient - Social History Smoking Status: Never Smoker Chew tobacco use (# tins/day): No Frequency of alcohol use: None Drug Abuse: None Family History: Hypertension Patient has suicidal ideation: No Patient has homicidal ideation: No - Past Medical History Cardiac Medical History: Reports: Hx Coronary Artery Disease, Hx Heart Attack - 2012 and 2016, Hx Hypercholesterolemia, Hx Hypertension Pulmonary Medical History: Denies: Hx Asthma, Hx Bronchitis, Hx COPD, Hx Pneumonia Neurological Medical History: Denies: Hx Cerebrovascular Accident, Hx Seizures Endocrine Medical History: Reports: Hx Diabetes Mellitus Type 2 Renal/ Medical History: Denies: Hx Peritoneal Dialysis GI Medical History: Reports: Hx Gastroesophageal Reflux Disease Musculoskeletal Medical History: Reports Hx Arthritis - B/L KNEES B/L HANDS Past Surgical History: Reports: Hx Cholecystectomy, Hx Orthopedic Surgery - Immunizations Hx Diphtheria, Pertussis, Tetanus Vaccination: Yes Review of Systems - Review of Systems Constitutional: No symptoms reported EENT: No symptoms reported Cardiovascular: No symptoms reported Respiratory: No symptoms reported Gastrointestinal: Abdominal pain Genitourinary: No symptoms reported Male Genitourinary: No symptoms reported Musculoskeletal: No symptoms reported Skin: No symptoms reported Hematologic/Lymphatic: No symptoms reported Neurological/Psychological: No symptoms reported Physical Exam - Vital signs Vitals: Temp Pulse Resp BP Pulse Ox 97.6 F 69 16 127/73 H 97 05/10/19 10:52 05/10/19 10:52 05/10/19 10:52 05/10/19 10:52 05/10/19 10:52 - Notes Notes: PHYSICAL EXAMINATION: GENERAL: Well-appearing, well-nourished and in no acute distress. HEAD: Atraumatic, normocephalic. EYES: Pupils equal round and reactive to light, extraocular movements intact, sclera anicteric, conjunctiva are normal. ENT: Nares patent, oropharynx clear without exudates. Moist mucous membranes. NECK: Normal range of motion, supple without lymphadenopathy LUNGS: Breath sounds clear to auscultation bilaterally and equal. No wheezes rales or rhonchi. HEART: Regular rate and rhythm without murmurs ABDOMEN: Soft, nondistended abdomen. Tenderness to mid and upper abdomen. No guarding, no rebound. No masses appreciated. Musculoskeletal: Normal range of motion, no pitting or edema. No cyanosis. NEUROLOGICAL: Cranial nerves grossly intact. Normal speech, normal gait. Normal sensory, motor exams PSYCH: Normal mood, normal affect. SKIN: Warm, Dry, normal turgor, no rashes or lesions noted. Course - Re-evaluation Re-evalutation: Laboratory 05/10/19 05/10/19 05/10/19 11:45 12:30 12:30 WBC 7.6 RBC 5.26 Hgb 13.9 Hct 39.7 MCV 76 L MCH 26.5 L MCHC 35.0 RDW 13.8 Plt Count 261 Seg Neutrophils % 55.0 Lymphocytes % 35.9 Monocytes % 7.1 Eosinophils % 1.0 Basophils % 1.0 Absolute Neutrophils 4.2 Absolute Lymphocytes 2.7 Absolute Monocytes 0.5 Absolute Eosinophils 0.1 Absolute Basophils 0.1 Sodium 137.5 Potassium 3.5 L Chloride 99 Carbon Dioxide 27 Anion Gap 12 BUN 16 Creatinine 0.77 Est GFR ( Amer) > 60 Est GFR (Non-Af Amer) > 60 Glucose 136 H Calcium 9.1 Total Bilirubin 0.6 Direct Bilirubin 0.3 Neonat Total Bilirubin Not Reportable Neonat Direct Bilirubin Not Reportable Neonat Indirect Bili Not Reportable AST 42 ALT 47 Alkaline Phosphatase 42 Total Protein 7.6 Albumin 4.2 Lipase 79.0 Urine Color YELLOW Urine Appearance CLEAR Urine pH 6.0 Ur Specific [place] 1.020 Urine Protein 100 H Urine Glucose (UA) NEGATIVE Urine Ketones NEGATIVE Urine Blood NEGATIVE Urine Nitrite NEGATIVE Urine Bilirubin NEGATIVE Urine Urobilinogen NEGATIVE Ur Leukocyte Esterase NEGATIVE Urine WBC (Auto) 1 Urine RBC (Auto) 0 Squamous Epi Cells Auto <1 Urine Mucus (Auto) RARE Urine Ascorbic Acid NEGATIVE Abdomen/Pelvis CT 05/10/19 15:01 IMPRESSION: 1. No evidence of acute intra-abdominal/pelvic process. 2. Hepatic steatosis. 3. Prostatomegaly measuring 5.5 cm transversely. Labs as recorded above are unremarkable. CT of the abdomen pelvis with no acute findings. Likely gastritis. Patient was given medications and IV fluids here in the emergency department which did resolve his symptoms. ED return precautions were discussed as outlined in discharge instructions patient verbalized understanding and agreement with same. The patient's emergency department workup and current diagnosis were explained to the patient and or family. Follow-up instructions were provided. Medications if prescribed were discussed. Instructions for when to return to the emergency department including specific worrisome symptoms were discussed with the patient and/or family. - Vital Signs Vital signs: Temp Pulse Resp BP Pulse Ox 98.2 F 70 16 136/88 H 99 05/10/19 16:45 05/10/19 16:45 05/10/19 16:45 05/10/19 16:45 05/10/19 16:45 - Laboratory Result Diagrams: 05/10/19 12:30 05/10/19 12:30 Laboratory results interpreted by me: 05/10/19 05/10/19 05/10/19 11:45 12:30 12:30 MCV 76 L MCH 26.5 L Potassium 3.5 L Glucose 136 H Urine Protein 100 H Discharge - Discharge Clinical Impression: Gastritis Qualifiers: Gastritis type: unspecified gastritis Chronicity: acute Gastritis bleeding: without bleeding Qualified Code(s): K29.00 - Acute gastritis without bleeding Condition: Stable Disposition: HOME, SELF-CARE Additional Instructions: Your symptoms appear to be most consistent with stomach or upper intestinal irritation. Please begin taking famotidine 40 mg in the morning and 40 mg at night and take the carafate as prescribed. This medicine can be purchased directly [id number]. You may also take medicine such as Pepto-Bismol or Tums to assist with your pain. Please return to emergency department immediately if you have worsening of your pain, shortness of breath, vomiting, become unable to exert yourself due to pain or difficulty breathing, you pass out, or have any pain that radiates into your arms, jaw, or back. Please also return if you have any additional symptoms that are concerning to you. As we have discussed, the most important thing is lifestyle changes. You need to avoid smoking, sodas, tea, coffee, alcohol, spicy foods, and acidic foods such as citrus fruits, tomato based products, berries, and most fruit juices. Prescriptions: Famotidine 40 mg PO BID #60 tablet Hydrocodone/Acetaminophen [[employer] [place] 5-325 mg Tablet] 1 tab PO Q4H PRN #12 tablet PRN Reason: Sucralfate [Carafate 1 gm Tablet] 1 gm PO ACHS #60 tablet Referrals: NICK GUERRERO HEARING HEALTH TECHNICIAN [Primary Care Provider] - Follow up as needed
[2019-05-10 16:46] VITALS: BP 136/88
== END 2019-05-10 16:50 | disposition home or self-care (01) ==
LOC: ER 10:42
DX: K29.00 Acute gastritis without bleeding (principal); R10.10 Upper abdominal pain, unspecified; K76.0 Fatty (change of) liver, not elsewhere classified; N40.0 Benign prostatic hyperplasia without lower urinary tract symptoms; I25.10 Atherosclerotic heart disease of native coronary artery without angina pectoris; I10 Essential (primary) hypertension; I25.2 Old myocardial infarction; E11.9 Type 2 diabetes mellitus without complications; Z87.19 Personal history of other diseases of the digestive system; Z90.49 Acquired absence of other specified parts of digestive tract
CPT/HCPCS: 96376; 99284; 96361; 96374; 96375; 36415; 83690; 85025; 80053; 81001; 74177; J2270; J2405; J7030

== ENCOUNTER → 2019-05-25 | Outpatient (CLI) | payer MEDICARE, OTHER ==
[~2019-05-25] MED LIST changes: +DIAZEPAM 5 MG TABLET ONE; -DIPHENHYDRAMINE HCL 50 MG/ML VIAL ONE; -EPINEPHRINE INJ 1 MG/10 ML DISP.SYRIN ONE; -FLUMAZENIL INJ 0.5 MG/5 ML VIAL IV ONE; -GLUCAGON,HUMAN RECOMB 1 MG INJ ONE; -MIDAZOLAM 2 MG/2 ML INJ ONE; -NALOXONE HCL INJ/PF 0.4 MG/1 ML SDV ONE; -ONDANSETRON HCL INJ/PF 4 MG/2 ML SDV ONE; -PROMETHAZINE HCL INJ 25 MG/1 ML VIAL ONE
--- NOTE | 2019-05-25 11:02 | RADIOLOGY REPORT (SQ) ---
EXAM DESCRIPTION: MRI LUMBAR SPINE WITHOUT COMPLETED DATE/TIME: 05/25/2019 10:47 am REASON FOR STUDY: LOW BACK PAIN M54.5 LOW BACK PAIN COMPARISON: None. TECHNIQUE: Sagittal and Axial imaging includes T1, T2, STIR and gradient echo sequences. Coronal T2/ HASTE imaging. LIMITATIONS: None. FINDINGS: VISUALIZED UPPER ABDOMEN: Limited evaluation. No acute or suspicious findings suggested. SEGMENTATION: No transitional anatomy. The lowest well-developed disc space is labeled L5-S1. ALIGNMENT: Anatomic. VERTEBRAE: Intact. BONE MARROW: Normal. No marrow replacement or reactive changes. DISC SIGNAL: Normal. No significant abnormal signal or loss of height. POSTERIOR ELEMENTS: Generally intact. No pars defect evident. HARDWARE: None in the spine. CORD AND CONUS: Normal in size and signal intensity. Conus at the L1-2 level. SOFT TISSUES: No aortic aneurysm seen. No bulky retroperitoneal adenopathy or mass. No paraspinal mas s or fluid. L1-L2: No significant spinal stenosis or exit foraminal stenosis. L2-L3: No significant spinal stenosis or exit foraminal stenosis. L3-L4: No significant spinal stenosis or exit foraminal stenosis. L4-L5: No significant spinal stenosis or exit foraminal stenosis. L5-S1: No significant spinal stenosis or exit foraminal stenosis. LOWER THORACIC: Incompletely imaged. No stenosis seen. SACRUM: Visualized upper sacrum intact. OTHER: No other significant findings. IMPRESSION: NORMAL MRI LUMBAR SPINE. TECHNICAL DOCUMENTATION: JOB ID: [id number] [employer]- All Rights Reserved Reading location - IP/workstation name: [email or web address]
== END ==
LOC: RAD 05-20 10:01
PROVIDERS: ATTEND Orthopaedic Surgery Sports Medicine
DX: M54.5 Low back pain (principal)
CPT/HCPCS: 72148; A9270 ×2